=== PATIENT | male | born 1935 | race Caucasian/White ===

== ENCOUNTER 2017-01-13 23:15 | Emergency (ER) | payer MEDICARE ==
--- NOTE | ~2017-01-13 | CT52 ---
[facility] A Service of [facility] RADIOLOGY TEXT RESULTS PATIENT: TEOFILO BYRD LOCATION: [facility] : 34 UNIT #: [id number] AGE: [address]: Andres Norman MD SEX: M ORDER DR: [id number] [facility] [address] [place], [place] [address] [id number] E MR#: [id number] Acc #: [id number] NAME: TEOFILO BYRD : 1935 SEX: M STUDY DATE/TIME: 01/13/2017 22:24 UNIT: [facility] ROOM: STUDY DESCRIPTION: CT Cervical Spine Wo Cont Attending Physician: Andres Noramn M.D. Ordering Physician: Andres Norman M.D. Primary Care Physician: Yvrose Leavitt M.D. MEDICAL IMAGING REPORT This report is preliminary unless electronic signature is present EXAM CT scan of the cervical spine without contrast INDICATIONS Fall today with head injury and neck pain. 01/13 COMPARISON 11/25/2014. FINDINGS This CT exam was performed with one or more of the following radiation dose reduction techniques: Automatic exposure control, adjustment of mA and/or kV according to patient size, and iterative reconstruction. Axial 2 mm images were obtained through the cervical spine and sagittal and coronal reconstructions were generated. There is marked disc space narrowing at C5-6 and 6-7. There is no fracture or subluxation. There has been no change. IMPRESSION Degenerative changes are most pronounced at C5-6 and 6-7. No acute abnormalities are identified. Dictated by... Felipe Aranda M.D. THIS IS AN ELECTRONICALLY VERIFIED REPORT Felipe Aranda M.D. at 01/14/2017 9:55 PM EDDIE/thao TD: 01/14/2017 17:20 JOB #: [id number] [facility] A Service of [facility] RADIOLOGY TEXT RESULTS PATIENT: TEOFILO BYRD LOCATION: [facility] : 34 UNIT #: [id number] AGE: [address]: Andres Norman MD SEX: M ORDER DR: MEDICAL IMAGING REPORT Page 1 of 1 COPY
--- NOTE | ~2017-01-13 | CT71 ---
[facility] A Service of [facility] & [facility] RADIOLOGY TEXT RESULTS PATIENT: TEOFILO BYRD LOCATION: [facility] : 34 UNIT #: [id number] AGE: [address]: Andres Norman MD SEX: M ORDER DR: [id number] [facility] [address] [place], [place] [address] [id number] E MR#: [id number] Acc #: [id number] NAME: TEOFILO BYRD : 1935 SEX: M STUDY DATE/TIME: 01/13/2017 22:21 UNIT: [facility] ROOM: STUDY DESCRIPTION: CT Head Wo Contrast Attending Physician: Andres Norman M.D. Ordering Physician: Andres Norman M.D. Primary Care Physician: Yvrose Leavitt M.D. MEDICAL IMAGING REPORT This report is preliminary unless electronic signature is present EXAM CT head without contrast dated 01/13/2017. COMPARISON CT head without contrast dated 11/25/2014. HISTORY Patient fell today with knot in the forehead. Headache and neck pain with bruising and swelling in the right side of the forehead. FINDINGS This CT exam was performed with one or more of the following radiation dose reduction techniques: Automatic exposure control, adjustment of mA and/or kV according to patient size, and iterative reconstruction. CT of the head was obtained without contrast in the axial plane as per the protocol. There is a large hematoma/swelling in the right anterolateral aspect of the forehead. It measures about 4.7 cm in greatest length and has a thickness of about 1.3 cm, approximately. No underlying fracture or acute intracranial hemorrhage. Motion artifact is noted in some of the images. Mild hypodensity is noted in the periventricular white matter, stable. Atherosclerotic vascular calcifications are noted in bilateral intracranial internal carotid arteries. Sosqayor-go-npyoyk right sphenoid sinus mucosal thickening is noted with thickening of babcock of the sinus suggestive of chronic osteitis. Stable the last 2 years. Mastoid air cells are well aerated. Orbits with the ocular structures do not demonstrate any significant abnormality. IMPRESSION 1. No demonstrable acute intracranial abnormality. 2. Minimal hypodensity is seen in the periventricular white matter, likely related to minimal chronic microvascular ischemic change. 3. Right forehead scalp hematoma is noted in the anterolateral aspect [facility] A Service of [facility] & [facility] RADIOLOGY TEXT RESULTS PATIENT: TEOFILO BYRD LOCATION: [facility] : 34 UNIT #: [id number] AGE: [address]: Adnres Norman MD SEX: M ORDER DR: measuring up to 1.3 cm in maximum thickness. No underlying fracture. 4. Rkyfcnzj-kn-ccfleh right sphenoid sinus mucosal thickening is noted which could be related to chronic sinusitis. Polyp and mucous retention cyst cannot be completely excluded given similar appearance 2 years back. 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 Stable. Dictated by... Linda Cloud M.D. THIS IS AN ELECTRONICALLY VERIFIED REPORT Linda Cloud M.D. at 01/15/2017 1:46 PM CPR/psc TD: 01/14/2017 17:13 JOB #: [id number] MEDICAL IMAGING REPORT Page 1 of 1 COPY
[~2017-01-13 23:15] MED LIST: ACTOS PO; AMLODIPINE-ATO1 EAC7 PO; ASPIRIN PO; ASPIRIN81 MG PO; AVAPRO PO; BYETTA10 MCG/0.0 INJ; CADUET 5 MG/801 TAB; CADUET 5 MG/801 TAB PO; CARVEDILOL25 MG PO; CATAPRES0.1 MG PO; CLONIDINE HCL0.1 MG PO; COREG PO; COUMADIN PO; COUMADIN PO/SL; COZAAR100 MG; DARVOCET-N 1001 TAB PO; FERROUS SULFATE PO; FUROSEMIDE80 MG PO; GLYNASE PO; HYDRALAZINE HC100 MG PO; HYDROCODON-ACE1 EAC5 PO; HYDROCODON-ACE1 EAC7 PO; IRON1 TA1 PO; IRON1 TAB PO; JANUVIA PO; KCL PO; LANTUS100 U/ML SUBQ; LASIX PO; LIPITOR PO; LISINOPRIL PO; LOVAZA PO; LOVAZA1 G PO; MULTI VITAMIN1 EACH PO; NOVOLOG100 U/ML SUBQ; PROCRIT2000 U/ML; ULORIC PO; ULORIC80 MG PO; VICODIN; VICODIN PO; VITAMIN B-1000 MCG/1 IM; VITAMIN B12 IM; VITEYES PO; ZAROXYLYN PO; ZEMPLAR1 MCG PO; ZINC PO; [UNRECOGNIZED DRUG - OTHER] PO; [UNRECOGNIZED DRUG - OTHER] PO
== END 2017-01-14 | disposition home or self-care (01) ==
LOC: CED 23:15
DX: S09.90XA Unspecified injury of head, initial encounter (principal); S00.03XA Contusion of scalp, initial encounter; I11.0 Hypertensive heart disease with heart failure; I50.9 Heart failure, unspecified; E11.9 Type 2 diabetes mellitus without complications; Z23 Encounter for immunization; W01.198A Fall on same level from slipping, tripping and stumbling with subsequent striking against other object, initial encounter; Y92.009 Unspecified place in unspecified non-institutional (private) residence as the place of occurrence of the external cause
CPT/HCPCS: 70450; 72125; 90471; 90715; 99283; 99284

== ENCOUNTER 2017-04-12 13:53 | Emergency (ER) | payer MEDICARE ==
--- NOTE | ~2017-04-12 | CR72 ---
[facility] A Service of [facility] & [facility] RADIOLOGY TEXT RESULTS PATIENT: TEOFILO BYRD LOCATION: [facility] : 34 UNIT #: [id number] AGE: [address]: Bala Bennett MD SEX: M ORDER DR: [id number] [facility] [address] [place], [place] [address] [id number] E MR#: [id number] Acc #: [id number] NAME: TEOFILO BYRD : 1935 SEX: M STUDY DATE/TIME: 04/12/2017 14:55 UNIT: [facility] ROOM: STUDY DESCRIPTION: CR Chest Single View Portable Attending Physician: Bala Bennett M.D. Ordering Physician: Ed Romero Gerber M.D. Primary Care Physician: Yvrose Leavitt M.D. MEDICAL IMAGING REPORT This report is preliminary unless electronic signature is present EXAM Portable chest. INDICATIONS Shortness of breath today. COMPARISON 07/21/2016 FINDINGS There is stable mild interstitial pattern. No airspace consolidation. Heart size is normal. IMPRESSION Stable mild interstitial pattern. No acute infiltrate. Dictated by... Chetan Montesinos M.D. THIS IS AN ELECTRONICALLY VERIFIED REPORT Chetan Montesinos M.D. at 04/13/2017 7:12 AM NIRU/delmis TD: 04/12/2017 18:04 JOB #: [id number] MEDICAL IMAGING REPORT Page 1 of 1 COPY
--- NOTE | ~2017-04-12 | CT71 ---
[facility] A Service of [facility] & [facility] RADIOLOGY TEXT RESULTS PATIENT: TEOFILO BYRD LOCATION: [facility] : 34 UNIT #: [id number] AGE: [address]: Bala Bennett MD SEX: M ORDER DR: [id number] [facility] [address] [place], [place] [address] [id number] E MR#: [id number] Acc #: [id number] NAME: TEOFILO BYRD : 1935 SEX: M STUDY DATE/TIME: 04/12/2017 16:06 UNIT: [facility] ROOM: STUDY DESCRIPTION: CT Head Wo Contrast Attending Physician: Bala Bennett M.D. Ordering Physician: Bala Bennett M.D. Primary Care Physician: Yvrose Leavitt M.D. MEDICAL IMAGING REPORT This report is preliminary unless electronic signature is present EXAM CT head, 04/12/2017. HISTORY Disorientation, confusion for 3 days. Confusion for 3 days. Hypertension, CHF, diabetes. TECHNIQUE CT head performed skull base through vertex without intravenous contrast. This CT exam was performed with one or more of the following radiation dose reduction techniques: automatic exposure control, adjustment of mA and/or kV according to patient size, and iterative reconstruction. COMPARISON 01/13/2017. FINDINGS The brainstem is unremarkable. Cerebellum and cerebral hemispheres show overall preservation of steve matter-white matter differentiation. No intracranial hemorrhage. No evidence of acute cortical ischemia. There are periventricular and deep white matter tract probable sequelae of chronic microvascular ischemia. The midline structures are nondisplaced. The ventricles, cisterns and sulci show moderate generalized enlargement with ventricular predominance consistent with moderate generalized atrophy. Stable. No intra or extraaxial mass effect or abnormal intracranial fluid collection. There are cavernous carotid and distal vertebral arterial calcifications. The intraorbital soft tissues are unremarkable. Soft tissue changes right supraorbital forehead likely reflecting sequelae of prior hematoma at this region. There is some minimal soft tissue thickening but no soft tissue defect, subcutaneous air or radiodense foreign body. The bony structures show no acute abnormality. Near-complete opacification of the right sphenoid sinus. More pronounced than on prior study. Subtle area of fluid or mucosal STS. [facility] A Service of [facility] & [facility] RADIOLOGY TEXT RESULTS PAT[facility]: [id number] UNIT #: [id number] AGE: [address]: Bala Bennett MD SEX: M ORDER DR: thickening right middle ear. Correlate with any clinical indications of otitis media. No acute-appearing bony abnormality. IMPRESSION 1. No clearly acute abnormality is seen in the brain. If the patient has ongoing neurologic symptoms, consider follow up imaging. 2. Chronic changes include: Periventricular and deep white matter tract probable sequelae of chronic microvascular ischemia, moderate generalized atrophy with central predominance, vascular calcifications. 3. There is near-complete opacification of the right sphenoid sinus. Sphenoid sinus disease more pronounced than on prior study. 4. Trace fluid or mucosal thickening in the right middle ear. Correlate with any clinical signs or symptoms of otitis media. 5. Some minimal soft tissue thickening right supraorbital forehead felt to reflect sequelae of patient's prior hematoma in this region. There is no soft tissue defect, subcutaneous air or radiodense foreign body and no fracture. Dictated by... Capo Lobo M.D. THIS IS AN ELECTRONICALLY VERIFIED REPORT Capo Lobo M.D. at 04/13/2017 7:11 PM Xochilt TD: 04/12/2017 19:34 JOB #: [id number] MEDICAL IMAGING REPORT Page 1 of 1 COPY
--- NOTE | ~2017-04-12 | EKG ---
PATIENT: TEOFILO BYRD UNIT #: [id number] Ventricular Rate: 53 BPM Atrial Rate: 53 BPM P-R Interval: 206 ms QRS Duration: 98 ms Q-T Interval: 478 ms QTC Calculation(Bezet): 448 ms P Glenshaw: 67 degrees Calculated R [place]: 2 degrees Calculated T [place]haw: 60 degrees Diagnosis Line: Sinus bradycardia Diagnosis Line: Nonspecific T wave abnormality Diagnosis Line: Abnormal ECG Diagnosis Line: No previous ECGs available Diagnosis Line: Confirmed by MICHEL PACK MD ([id number]) on Diagnosis Line: 04/13/2017 9:04:05 AM INTERPRETING MD: SIRENA ZARCO
[2017-04-12] MEDS ORDERED: ASPIRIN81 M2 PO (14:33)
[2017-04-12] MEDS ORDERED: CADUET 10 MG-81 EACH PO (14:33)
[2017-04-12] MEDS ORDERED: PATIENT'S PHARMACY (14:33)
[2017-04-12] MEDS ORDERED: CARVEDILOL25 MG PO (14:34)
[2017-04-12] MEDS ORDERED: CYANOCOBAL1000 MCG/M IM (14:34)
[2017-04-12] MEDS ORDERED: LASIX PO (14:35)
[2017-04-12] MEDS ORDERED: HYDRALAZINE HCL50 MG PO (14:35)
[2017-04-12] MEDS ORDERED: LORTAB 10-3251 EACH PO (14:35)
[2017-04-12] MEDS ORDERED: ULORIC80 MG PO (14:35)
[2017-04-12] MEDS ORDERED: NOVOLOG FL100 UNIT/1 SUBQ (14:36)
[2017-04-12] MEDS ORDERED: NOVOLOG100 UNITS/ SUBQ (14:36)
[2017-04-12] MEDS ORDERED: LUTEIN-ZEAXANT1 EACH PO (14:37)
[2017-04-12] MEDS ORDERED: IRON45 MG PO (14:37)
[2017-04-12] MEDS ORDERED: LANTUS100 UNITS/ SUBQ (14:37)
[2017-04-12] MEDS ORDERED: KCL PO (14:38)
[2017-04-12] MEDS ORDERED: LOVAZA1 GM PO (14:38)
[2017-04-12] MEDS ORDERED: ZEMPLAR1 MCG PO (14:38)
[2017-04-12] MEDS ORDERED: FLONASE ALLERG9.9 ML (14:39)
[2017-04-12] MEDS ORDERED: PRILOSEC PO (14:39)
[2017-04-12] MEDS ORDERED: SYMBICORT INH (14:39)
[2017-04-12 15:08] LABS: BASOPHIL# 0.1 X10e3 (0-0.3); BASOPHIL% 1.1 % (0-2.5); DIFF IND NO; EOSINOPHIL# 0.5 X10e3 (0-0.7); EOSINOPHIL% 8.3 % (0.0-7.0); HEMOGLOBIN 9.8 gm/dL (13.0-16.0); LYMPHOCYTE# 1.5 X10e3 (1.0-3.5); MEAN CELL VOLUME 90.5 FL (83-96); MEAN CORPUSCULAR HEMOGLOBIN 30.6 PG (28-34); MEAN CORPUSCULAR HGB CONC 33.9 g/dL (30-36); MEAN PLATELET VOLUME 8.8 FL (6.5-11.5); MONOCYTE# 0.6 X10e3 (0-1.0); MONOCYTE% 9.5 % (3.0-12.0); NEUTROPHIL# 3.8 X10e3 (1.5-7.1); NEUTROPHIL% 58.1 % (40-75); PLATELET COUNT 100 X10e3 (140-420); RED BLOOD COUNT 3.21 X10e (3.90-5.60); RED CELL DISTRIBUTION WIDTH 14.8 % (11.0-15.5); WHITE BLOOD COUNT 6.5 X10e3 (4.0-10.5)
[2017-04-12 15:30] LABS: ALBUMIN SERUM 2.9 g/dL (3.5-5.0); BILIRUBIN, DIRECT 0.1 mg/dL (0.0-0.2); BILIRUBIN,INDIRECT 0.7 mg/dL (0.0-0.9); BILIRUBIN,TOTAL 0.8 mg/dL (0.2-2.0); BUN/CREATININE RATIO 13.88; CALCIUM SERUM 9.5 mg/dL (8.4-10.2); CREATININE SERUM 1.8 mg/dL (0.6-1.4); GLOM FILT RATE Estimated 34.3 mL/min (>60); PROTEIN TOTAL SERUM 6.1 g/dL (6.0-8.3)
[2017-04-12 16:30] LABS: URINE SOURCE CLEAN CATCH
[2017-04-12 16:38] LABS: URINE APPEARANCE CLEAR; URINE BILIRUBIN NEG (NEG); URINE BLOOD NEG (NEG); URINE COLOR YELLOW; URINE GLUCOSE 500 MG/DL (NEG); URINE KETONE NEG (NEG); URINE LEUKOCYTE ESTERASE NEG (NEG); URINE NITRATE NEG (NEG); URINE PROTEIN 2+ (NEG); URINE SPECIFIC GRAVITY 1.011 (1.003-1.035); URINE UROBILINOGEN 0.2 MG/DL (NEG)
[2017-04-12 16:41] LABS: U HYALINE CASTS AUWI 0-2 /[LPF]; URBCS1 AUWI 0-2 /[HPF] (0-2); URINE BACTERIA AUWI NEG (NEGATIVE); URINE SQUAMOUS EPITHELIAL CELL NONE SEEN /[HPF]; UWBCS1 AUWI 0-2 (0-5)
[2017-04-12 16:48] LABS: CULTURE INDICATED? NO
== END 2017-04-12 17:17 | disposition home or self-care (01) ==
LOC: CED 13:53
DX: S09.90XA Unspecified injury of head, initial encounter (principal); F07.81 Postconcussional syndrome; E78.5 Hyperlipidemia, unspecified; I12.9 Hypertensive chronic kidney disease with stage 1 through stage 4 chronic kidney disease, or unspecified chronic kidney disease; E11.22 Type 2 diabetes mellitus with diabetic chronic kidney disease; N18.9 Chronic kidney disease, unspecified; Z95.1 Presence of aortocoronary bypass graft; Z79.82 Long term (current) use of aspirin; Z79.899 Other long term (current) drug therapy; Z79.4 Long term (current) use of insulin; X58.XXXA Exposure to other specified factors, initial encounter
CPT/HCPCS: 36415; 70450; 71010; 80048; 80076; 81003; 82947; 85025; 93005; 99285

== ENCOUNTER 2017-04-19 19:08 | Emergency (ER) | payer MEDICARE ==
[~2017-04-19] VITALS: Ht 182.9 cm; Wt 85.7 kg
--- NOTE | ~2017-04-19 | EKG ---
PATIENT: TEOFILO BYRD UNIT #: [id number] Ventricular Rate: 54 BPM Atrial Rate: 54 BPM P-R Interval: 220 ms QRS Duration: 158 ms Q-T Interval: 476 ms QTC Calculation(Bezet): 451 ms P Roebuck: 98 degrees Calculated R Roebuck: -16 degrees Calculated T Roebuck: 105 degrees Diagnosis Line: Sinus bradycardia with 1st degree A-V block Diagnosis Line: Non-specific intra-ventricular conduction block Diagnosis Line: Abnormal ECG Diagnosis Line: When compared with ECG of 12-APR-2017 14:35, Diagnosis Line: QRS duration has increased Diagnosis Line: T wave inversion less evident in Lateral leads Diagnosis Line: Confirmed by MICHEL PACK MD ([id number]) on Diagnosis Line: 04/20/2017 7:33:25 AM INTERPRETING MD: SIRENA ZARCO
--- NOTE | ~2017-04-19 | CR72 ---
[facility] A Service of [facility] & [facility] RADIOLOGY TEXT RESULTS PATIENT: TEOFILO BYRD LOCATION: [facility] : 34 UNIT #: [id number] AGE: [address]: Jon Abbott MD SEX: M ORDER DR: [id number] [facility] [address] [place], [place] [address] [id number] E MR#: [id number] Acc #: [id number] NAME: TEOFILO BYRD : 1935 SEX: M STUDY DATE/TIME: 04/19/2017 19:39 UNIT: [facility] ROOM: STUDY DESCRIPTION: CR Chest Single View Portable Attending Physician: Jon Abbott M.D. Referring Physician: Yvrose Leavitt M.D. Ordering Physician: Jon Abbott M.D. Primary Care Physician: Yvrose Leavitt M.D. MEDICAL IMAGING REPORT This report is preliminary unless electronic signature is present EXAM Portable chest HISTORY Shortness of air today. FINDINGS Cardiac size and pulmonary vascularity are normal. Sternotomy and CABG markers. No airspace infiltrates or effusions. Mild right lower thoracic curve. IMPRESSION No acute findings. Prior CABG. Dictated by... Lazaro Mcnulty M.D. THIS IS AN ELECTRONICALLY VERIFIED REPORT Lazaro Mcnulty M.D. at 04/20/2017 11:43 PM DFL/vikasr TD: 04/20/2017 03:18 JOB #: [id number] MEDICAL IMAGING REPORT Page 1 of 1 COPY
[~2017-04-19 19:08] MED LIST changes: +ASPIRIN81 M2 PO; +CADUET 10 MG-81 EACH PO; +CYANOCOBAL1000 MCG/M IM; +FLONASE ALLERG9.9 ML; +HYDRALAZINE HCL50 MG PO; +IRON45 MG PO; +LANTUS100 UNITS/ SUBQ; +LORTAB 10-3251 EACH PO; +LOVAZA1 GM PO; +LUTEIN-ZEAXANT1 EACH PO; +NOVOLOG FL100 UNIT/1 SUBQ; +NOVOLOG100 UNITS/ SUBQ; +PATIENT'S PHARMACY; +PRILOSEC PO; +SYMBICORT INH
[2017-04-19 19:43] LABS: BASOPHIL# 0.1 X10e3 (0-0.3); EOSINOPHIL# 0.8 X10e3 (0-0.7); HEMATOCRIT 29.1 % (38.0-50.0); HEMOGLOBIN 9.7 gm/dL (13.0-16.0); LYMPHOCYTE# 1.5 X10e3 (1.0-3.5); LYMPHOCYTE% 17.7 % (17.0-45.0); MEAN CELL VOLUME 90.7 FL (83-96); MEAN CORPUSCULAR HEMOGLOBIN 30.2 PG (28-34); MEAN CORPUSCULAR HGB CONC 33.3 g/dL (30-36); MEAN PLATELET VOLUME 8.1 FL (6.5-11.5); MONOCYTE# 1.3 X10e3 (0-1.0); NEUTROPHIL# 4.8 X10e3 (1.5-7.1); NEUTROPHIL% 57.3 % (40-75); PLATELET COUNT 119 X10e3 (140-420); RED BLOOD COUNT 3.21 X10e (3.90-5.60); RED CELL DISTRIBUTION WIDTH 15.2 % (11.0-15.5); WHITE BLOOD COUNT 8.4 X10e3 (4.0-10.5)
[2017-04-19 19:49] LABS: DIFF IND NO
[2017-04-19 19:57] LABS: PROTHROMBIN TIME (PATIENT) 10.4 SECONDS (10.0-11.7)
[2017-04-19 20:13] LABS: BUN/CREATININE RATIO 17.03; CALCIUM SERUM 9.5 mg/dL (8.4-10.2); CREATININE SERUM 2.7 mg/dL (0.6-1.4)
== END 2017-04-19 20:56 | disposition home or self-care (01) ==
LOC: CED 19:08
PROVIDERS: Emergency Medicine
DX: E10.649 Type 1 diabetes mellitus with hypoglycemia without coma (principal); I12.9 Hypertensive chronic kidney disease with stage 1 through stage 4 chronic kidney disease, or unspecified chronic kidney disease; N18.9 Chronic kidney disease, unspecified; Z79.82 Long term (current) use of aspirin; Z79.899 Other long term (current) drug therapy; Z79.4 Long term (current) use of insulin
CPT/HCPCS: 36415; 71010; 80048; 82947; 85025; 85610; 93005; 99285